=== PATIENT | male | born 1950 | race Caucasian/White ===

== ENCOUNTER 2016-12-02 09:15 | Day surgery (SDC) | payer OTHER ==
[~2016-12-02 09:15] MED LIST: Lactated Ringers 1,000 ML IV SCH
[2016-12-02] MEDS ORDERED: Midazolam 1 MG/ML 2 ML SDV ONE (10:13)
[2016-12-02] MEDS ORDERED: Propofol 200 MG/20 ML SDV ONE (10:13)
[2016-12-02] MEDS ORDERED: fentaNYL 100 MCG/2 ML SDV ONE (10:13)
--- NOTE | 2016-12-02 10:18 | PCM.PREANE ---
Preanesthetic Assessment - Anesthesia/Transfusion/Family Hx Anesthesia History: Prior Anesthesia Without Reaction Family History of Anesthesia Reaction: No Transfusion History: No Prior Transfusion(s) Intubation History: Unknown - Review of Systems General: No Symptoms Pulmonary: No Symptoms Cardiovascular: No Symptoms Gastrointestinal: No Symptoms, Other (screening) Neurological: No Symptoms Other: Reports: None - Physical Assessment O2 Sat by Pulse Oximetry: 96 Respiratory Rate: 16 Vital Signs: Last Vital Signs Temp 36.5 C 12/02/16 09:41 Pulse 50 L 12/02/16 09:41 Resp 16 12/02/16 09:41 BP 149/65 H 12/02/16 09:41 Pulse Ox 96 12/02/16 09:41 Height: 1.75 m Weight: 120.656 kg ASA Class: 3 Mental Status: Alert & Oriented x3 Airway Class: Mallampati = 2 Dentition: Reports: Normal Dentition, Broken Tooth/Teeth (lower right) Thyro-Mental Finger Breadths: 3 Mouth Opening Finger Breadths: 2 ROM/Head Extension: Limited/Partial Lungs: Clear to Auscultation, Normal Respiratory Effort Cardiovascular: Regular Rate, Regular Rhythm - Allergies Allergies/Adverse Reactions: Allergies Allergy/AdvReac Type Severity Reaction Status Date / Time No Known Allergies Allergy Verified 11/27/16 16:22 - Blood Blood Available: No - Anesthesia Plan Pre-Op Medication Ordered: None - Acknowledgements Anesthesia Type Planned: MAC Pt an Appropriate Candidate for the Planned Anesthesia: Yes Alternatives and Risks of Anesthesia Discussed w Pt/Guardian: Yes Pt/Guardian Understands and Agrees with Anesthesia Plan: Yes PreAnesthesia Questionnaire Other HEENT History: wears glasses Cardiovascular History: Reports: Hypertension Respiratory History: Reports: Sleep Apnea Other Respiratory History: uses CPAP Musculoskeletal History: Reports: Arthritis, Back Pain, Chronic Other Musculoskeletal History: hx of pain clinic procedures, arthritis in hands and back Endocrine/Metabolic History: Reports: Obesity/BMI 30+ (BMI 39.3) - Past Surgical History Cardiovascular Surgical History: Reports: Varicose Other Cardiovascular Surgeries/Procedures: hx of right leg varicose vein stripping GI Surgical History: Reports: Colonoscopy, Hernia, Abdominal, Hernia, Inguinal Other GI Surgeries/Procedures: hx of right Inguinal Hernia Repair and Umbilical Hernia Repair - SUBSTANCE USE Smoking Status *Q: Never Smoker Recreational Drug Use History: No - HOME MEDS Home Medications: Home Meds Acetaminophen [Acetaminophen Extra Strength] 500 mg PO ASDIRECTED PRN 11/27/16 [ History] Aspirin [Adult Low Dose Aspirin EC] 81 mg PO DAILY 11/27/16 [History] Diclofenac Sodium 4 gm TOP QID 11/27/16 [History] Lisinopril 20 mg PO DAILY 11/27/16 [History] Multivitamin [Men's Multi-Vitamin] 1 tab PO DAILY 11/27/16 [History] [place]-3/DHA/Epa/Fish Oil [[place] 3 500 Softgel] 1 cap PO DAILY 11/27/16 [History] Orphenadrine Citrate 100 mg PO BID PRN 11/27/16 [History] - CURRENT (IN HOUSE) MEDS Current Meds: Current Medications Lactated Ringer's (Ringers, Lactated) 1,000 mls @ 125 mls/hr IV ASDIRECTED LEONORA Last Admin: 12/02/16 09:46 Dose: 125 mls/hr
[2016-12-02] MEDS ORDERED: Glycopyrrolate 0.2 MG/ML SDV ONE (11:53)
[2016-12-02] MEDS ORDERED: Lactated Ringers 1,000 ML IV SCH (12:15)
--- NOTE | 2016-12-02 12:15 | PCM.OPNOTE ---
- General Post-Op/Procedure Note Date of Surgery/Procedure: 12/02/16 Operative Procedure(s): Colonoscopy Pre Op Diagnosis: Desire for colorectal cancer screening. Family history of colon cancer (brother). Post-Op Diagnosis: Same Anesthesia Technique: MAC (ASA III) Primary Surgeon: Lei Hollingsworth [employer] Teacher: Rhonda Goetz Condition: Good Free Text/Narrative:: Dictation [id number] CPT CODE 26098
[2016-12-02 12:51] VITALS: BP 111/59
--- NOTE | 2016-12-02 18:03 | OR ---
SURGEON: Lei Hollingsworth M.D. DATE OF PROCEDURE: 12/02/2016 PROCEDURE PERFORMED: Colonoscopy. ANESTHESIA: MAC. ASA CLASSIFICATION: III. PREOPERATIVE DIAGNOSES: 1. Desire for colorectal cancer screening. 2. Family history of colon cancer in his brother. POSTOPERATIVE DIAGNOSIS: No evidence of neoplasia. DESCRIPTION OF PROCEDURE: The patient was taken to the endoscopy room and positioned on the endoscopy table in the left lateral decubitus position. Time-out was called for appropriate identification of the patient and procedure. Monitored anesthesia care was provided. The colonoscope was inserted into the rectum and advanced with minimal difficulty to the cecum, where the colonoscope was retroflexed to visualize the ascending colon from below. The colonoscope was then straightened and slowly withdrawn. The cecum, ascending colon, hepatic flexure, transverse colon, splenic flexure, descending colon, sigmoid colon, and rectum were very well visualized. No tumors, polyps, diverticula, or angiodysplastic changes were noted. There was no evidence of inflammatory bowel disease. The colonoscope was withdrawn to the rectum and retroflexed to visualize the anal orifice from above. No tumors or polyps were seen, and there were no acute hemorrhoidal changes. The colonoscope was then straightened. The rectum was aspirated and colonoscope removed. The patient tolerated the procedure well and was taken to recovery room in a stable condition. PARVIN GAMBOA /[id number]
== END 2016-12-02 12:44 | disposition home or self-care (01) ==
LOC: MW.SDS 09:15
PROVIDERS: ATTEND Surgery
DX: Z12.11 Encounter for screening for malignant neoplasm of colon (principal); Z80.0 Family history of malignant neoplasm of digestive organs; I10 Essential (primary) hypertension; M51.36 Other intervertebral disc degeneration, lumbar region; M79.1 Myalgia; G47.30 Sleep apnea, unspecified; E66.9 Obesity, unspecified; Z79.82 Long term (current) use of aspirin; Z79.899 Other long term (current) drug therapy; Z98.890 Other specified postprocedural states; Z68.39 Body mass index [BMI] 39.0-39.9, adult; Z99.89 Dependence on other enabling machines and devices
CPT/HCPCS: 45378; J2250; J3010; J7120; 00810; J2704

== ENCOUNTER 2016-12-06 06:31 | Day surgery (SDC) | payer OTHER ==
[~2016-12-06 06:31] MED LIST changes: +ceFAZolin 2 GM in Premix Bag 1 BAG IV SCH
--- NOTE | 2016-12-06 07:07 | PCM.PREANE ---
Preanesthetic Assessment - Anesthesia/Transfusion/Family Hx Anesthesia History: Prior Anesthesia Without Reaction Family History of Anesthesia Reaction: No Transfusion History: No Prior Transfusion(s) Intubation History: Unknown - Review of Systems General: No Symptoms Pulmonary: No Symptoms Cardiovascular: No Symptoms Gastrointestinal: No Symptoms Neurological: No Symptoms Other: Reports: None - Physical Assessment O2 Sat by Pulse Oximetry: 96 Respiratory Rate: 16 Vital Signs: Last Vital Signs Temp 36 C 12/06/16 06:41 Pulse 47 L 12/06/16 06:41 Resp 16 12/06/16 06:41 BP 160/64 H 12/06/16 06:41 Pulse Ox 96 12/06/16 06:41 Height: 1.75 m Weight: 120.656 kg ASA Class: 3 Mental Status: Alert & Oriented x3 Airway Class: Mallampati = 2 Dentition: Reports: Dentures (upper and lower) Thyro-Mental Finger Breadths: 3 Mouth Opening Finger Breadths: 3 ROM/Head Extension: Full Lungs: Clear to Auscultation, Normal Respiratory Effort Cardiovascular: Regular Rate, Regular Rhythm - Allergies Allergies/Adverse Reactions: Allergies Allergy/AdvReac Type Severity Reaction Status Date / Time No Known Allergies Allergy Verified 11/27/16 16:22 - Blood Blood Available: No - Anesthesia Plan Pre-Op Medication Ordered: None - Acknowledgements Anesthesia Type Planned: General Anesthesia Pt an Appropriate Candidate for the Planned Anesthesia: Yes Alternatives and Risks of Anesthesia Discussed w Pt/Guardian: Yes Pt/Guardian Understands and Agrees with Anesthesia Plan: Yes PreAnesthesia Questionnaire Other HEENT History: wears glasses Cardiovascular History: Reports: High Cholesterol, Hypertension Respiratory History: Reports: Sleep Apnea Other Respiratory History: uses CPAP Musculoskeletal History: Reports: Arthritis, Back Pain, Chronic Other Musculoskeletal History: hx of pain clinic procedures, arthritis in hands and back Psychiatric History: Reports: Depression Endocrine/Metabolic History: Reports: Obesity/BMI 30+ (BMI 39.3) - Past Surgical History Cardiovascular Surgical History: Reports: Varicose Other Cardiovascular Surgeries/Procedures: hx of right leg varicose vein stripping GI Surgical History: Reports: Colonoscopy, Hernia, Abdominal, Hernia, Inguinal Other GI Surgeries/Procedures: hx of right Inguinal Hernia Repair and Umbilical Hernia Repair - SUBSTANCE USE Smoking Status *Q: Never Smoker Recreational Drug Use History: No - HOME MEDS Home Medications: Home Meds Acetaminophen [Acetaminophen Extra Strength] 500 mg PO ASDIRECTED PRN 11/27/16 [ History] Aspirin [Adult Low Dose Aspirin EC] 81 mg PO DAILY 11/27/16 [History] Diclofenac Sodium 4 gm TOP QID 11/27/16 [History] Lisinopril 20 mg PO DAILY 11/27/16 [History] Multivitamin [Men's Multi-Vitamin] 1 tab PO DAILY 11/27/16 [History] [place]-3/DHA/Epa/Fish Oil [[place] 3 500 Softgel] 1 cap PO DAILY 11/27/16 [History] Orphenadrine Citrate 100 mg PO BID PRN 11/27/16 [History] - CURRENT (IN HOUSE) MEDS Current Meds: Current Medications Cefazolin Sodium/Dextrose 2 gm (/ Premix) 50 mls @ 100 mls/hr IV ONETIME LEONORA Lactated Ringer's (Ringers, Lactated) 1,000 mls @ 125 mls/hr IV ASDIRECTED LEONORA Last Admin: 12/06/16 06:47 Dose: 125 mls/hr
[2016-12-06] MEDS ORDERED: Propofol 200 MG/20 ML SDV ONE (07:20)
[2016-12-06] MEDS ORDERED: Bupivacaine 0.5% 30 ML SDV ONE (07:20)
[2016-12-06] MEDS ORDERED: ceFAZolin 1 GM Vial ONE (07:20)
[2016-12-06] MEDS ORDERED: Ondansetron 4 MG/2 ML SDV ONE (07:20)
[2016-12-06] MEDS ORDERED: Rocuronium 10 MG/ML 10 ML Syringe ONE (07:20)
[2016-12-06] MEDS ORDERED: fentaNYL 100 MCG/2 ML SDV ONE ×2 (07:20→09:12)
[2016-12-06] MEDS ORDERED: Dexamethasone 4 MG/ML 5 ML MDV ONE (07:20)
[2016-12-06] MEDS ORDERED: Midazolam 1 MG/ML 2 ML SDV ONE (07:20)
[2016-12-06] MEDS ORDERED: Lidocaine 2% 5 ML SDV ONE (07:23)
[2016-12-06] MEDS ORDERED: HYDROmorphone 2 MG/ML Syringe ONE (08:06)
[2016-12-06] MEDS ORDERED: Ketorolac 30 MG/ML SDV ONE (09:02)
[2016-12-06] MEDS ORDERED: Acetaminophen/HYDROcodone 325-5 MG Tab PO PRN (09:30)
[2016-12-06] MEDS ORDERED: Morphine 10 MG/ML Syringe IVPUSH PRN (09:30)
[2016-12-06] MEDS ORDERED: Lactated Ringers 1,000 ML IV SCH (09:30)
--- NOTE | 2016-12-06 09:33 | PCM.OPNOTE ---
- General Post-Op/Procedure Note Date of Surgery/Procedure: 12/06/16 Operative Procedure(s): Repair indirect left inguinal hernia with large Bard PerFix plug and patch Pre Op Diagnosis: Reducible left inguinal hernia Post-Op Diagnosis: Same Anesthesia Technique: General ET Tube (ASA III) Primary Surgeon: Lei Hollingsworth [employer] Consultant: Rhonda Goetz Fluid Replacement, Intraop: 1,300 EBL in mLs: 10 Condition: Good Free Text/Narrative:: Dictation [id number]
--- NOTE | 2016-12-06 09:51 | OR ---
SURGEON: Lei Hollingsworth M.D. DATE OF PROCEDURE: 12/06/2016 OPERATION PERFORMED: Left inguinal hernia repair with large Bard PerFix plug and patch. CONFERENCE RESERVATIONIST: DINORAH Lemons student. ANESTHESIA: General endotracheal. ASA CLASSIFICATION: III. PREOPERATIVE DIAGNOSIS: Reducible left inguinal hernia. POSTOPERATIVE DIAGNOSIS: Reducible left inguinal hernia. ESTIMATED BLOOD LOSS: 10 mL. INTRAOPERATIVE FLUID REPLACEMENT: 1300 mL of crystalloid. DESCRIPTION OF PROCEDURE: The patient was taken to the operating room and placed on the operating table in the supine position. Time-out was called for appropriate identification of the patient and procedure. Thigh-high TEDs and sequential compression boots had been marked. The surgical site had been marked prior to the patient entering the operating room. The abdomen was prepped with DuraPrep solution. Sterile drapes were applied. The skin incision was marked out on the left inguinal crease and then infiltrated with 0.5% Marcaine solution. The skin incision was made, deepened through the subcutaneous tissue obtaining hemostasis with the use of electrocautery. Dissection was carried down to the external oblique fascia, identifying the external ring. The external oblique was then opened in the direction of its fibers. The cord was mobilized and the hernia sac was dissected away from the cord structures. These structures were then encircled with a Augustina drain. Once the hernia sac was reduced, a large Bard PerFix plug and patch was brought to the operating table and soaked in 1% Ancef solution. The plug was placed into the internal ring and secured with 0 Ethibond suture. The patch was placed over this and secured inferiorly and medially to Brady's ligament transitioning to the inguinal ligament and superiorly to the transversalis fascia. The wings were brought around the cord laterally and also secured with an 0 Ethibond suture. All sutures were tied down. The patient was given a Valsalva maneuver to 35 cm of water and the repair was solid. The wound was then irrigated with 1% Ancef solution. The cord was returned to its anatomic location. The external oblique was reapproximated with 3-0 Vicryl. Govind's fascia was closed with running 3-0 Vicryl. Skin edges were reapproximated with subcuticular 4-0 Monocryl reinforced with Steri-Strips. Sterile Tegaderm pad was placed as a dressing. Sponge, needle, and instrument counts were all correct. The patient tolerated the procedure well. Following emergence from anesthesia and extubation, he was taken to recovery room in stable condition. PARVIN GAMBOA /[id number]
[2016-12-06 12:01] VITALS: BP 139/78
--- NOTE | 2016-12-06 15:33 | PCM48HPAN ---
Post Anesthesia Note - EVALUATION WITHIN 48HRS OF ANESTHETIC Vital Signs in Normal Range: Yes Patient Participated in Evaluation: Yes Respiratory Function Stable: Yes Airway Patent: Yes Cardiovascular Function Stable: Yes Hydration Status Stable: Yes Pain Control Satisfactory: Yes Nausea and Vomiting Control Satisfactory: Yes Mental Status Recovered: Yes - COMMENTS/OBSERVATIONS Free Text/Narrative:: patient strait catheterized and 400 cc of urine obtained. Released home feeling well.
== END 2016-12-06 15:36 | disposition home or self-care (01) ==
LOC: MW.SDS 06:31
PROVIDERS: ATTEND Surgery
DX: K40.90 Unilateral inguinal hernia, without obstruction or gangrene, not specified as recurrent (principal); E78.00 Pure hypercholesterolemia, unspecified; I10 Essential (primary) hypertension; G47.30 Sleep apnea, unspecified; F32.9 Major depressive disorder, single episode, unspecified; M19.049 Primary osteoarthritis, unspecified hand; Z99.89 Dependence on other enabling machines and devices; Z79.82 Long term (current) use of aspirin; Z79.899 Other long term (current) drug therapy; Z98.890 Other specified postprocedural states
CPT/HCPCS: 49505; A9270; J0690; J1100; J1170; J1885; J2250; J2405; J3010; J7120; 00830; C1781; J2704

== ENCOUNTER 2017-08-07 11:10 | Emergency (ER) | payer OTHER ==
[2017-08-07 11:24] VITALS: BP 171/73
--- NOTE | 2017-08-07 11:38 | EDM.PDOC ---
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 He says he is not sure how he cut it but it's been bleeding and is concerned about it and there is pain at the area. The remainder of the fingers and the hand are without discomfort or injury and prior to these events he was in his usual state of good health with no systemic complaints. Patient is up-to-date on his tetanus shot. Patient says he is able to move the thumb and it is not numb but it is in fact discomforting and painful. Review of systems: As per history of present illness and below otherwise all systems reviewed and negative. Past medical history: As per history of present illness and as reviewed below otherwise noncontributory. Surgical history: As per history of present illness and as reviewed below otherwise noncontributory. Social history: No reported history of drug or alcohol abuse. Family history: As per history of present illness and as reviewed below otherwise noncontributory. Physical exam: General: Well-developed well-nourished man who is mildly overweight and nontoxic. Vital signs were noted by me HEENT: Atraumatic, normocephalic, negative for conjunctival pallor or scleral icterus, mucous membranes moist, throat clear, neck supple, nontender, trachea midline. Lungs: Clear to auscultation, breath sounds equal bilaterally, chest nontender. Heart: S1S2, regular and rhythm no overt murmurs Abdomen: Soft, nondistended, nontender. NABS. Pelvis: Deferred Genitourinary: Deferred. Rectal: Deferred. Extremities: Atraumatic with full range of motion of all extremities with the exception of the right thumb. At the distal phalanx on the dorsal side of the right thumb there is a 4 cm laceration that extends from the tip of the soft tissue through the distal aspect of the nail and then into the medial aspect of the finger. The nail is intact on the distal aspect and there is no disruption of the proximal aspect of the nail. The patient is able to flex extend and oppose at the thumb. There is oozing of blood but no gross bleeding. There is tenderness throughout this area. The laceration extends to the subcutaneous tissue. The legs are, negative for cords or calf pain. Neurovascular unremarkable. Neuro: Awake, alert, oriented. Cranial nerves II through XII unremarkable. Cerebellum unremarkable. Motor and sensory unremarkable throughout. Exam nonfocal. Diagnostics: [] Therapeutics: Wound care irrigation bacitracin and tube gauze, please see procedure note Procedure note: After the wound was cleansed by nursing and 1% lidocaine without epinephrine was infused in a digital fashion the wound was explored and no foreign bodies were appreciated. It was decided that the distal aspect of the nail would be left intact and the surrounding soft tissue would be repaired. A total number of # 4 interrupted sutures of 4-0Nylon placed without complication-1 suture at the tip of the soft tissue and 3 at the medial aspect of the laceration.. The patient tolerated the procedure well and bacitracin and tube gauze were applied by nursing. This laceration was simple in complexity and the procedure was performed by Kim Covington NP Impression: Right thumb laceration with disruption of the distal nail Definitive disposition and diagnosis as appropriate pending reevaluation and review of above. Right Thumb Pain Score (Numeric/FACES): 9 - Related Data Allergies Allergy/AdvReac Type Severity Reaction Status Date / Time No Known Allergies Allergy Verified 08/07/17 11:21 Home Meds: Home Meds Acetaminophen [Acetaminophen Extra Strength] 500 mg PO ASDIRECTED PRN 11/27/16 [ History] Aspirin [Adult Low Dose Aspirin EC] 81 mg PO DAILY 11/27/16 [History] Diclofenac Sodium 4 gm TOP QID 11/27/16 [History] Lisinopril 20 mg PO DAILY 11/27/16 [History] Multivitamin [Men's Multi-Vitamin] 1 tab PO DAILY 11/27/16 [History] [place]-3/DHA/Epa/Fish Oil [[place] 3 500 Softgel] 1 cap PO DAILY 11/27/16 [History] Orphenadrine Citrate 100 mg PO BID PRN 11/27/16 [History] Past Medical History Other HEENT History: wears glasses Cardiovascular History: Reports: High Cholesterol, Hypertension Respiratory History: Reports: Sleep Apnea Other Respiratory History: uses CPAP Musculoskeletal History: Reports: Arthritis, Back Pain, Chronic Other Musculoskeletal History: hx of pain clinic procedures, arthritis in hands and back Psychiatric History: Reports: Depression Endocrine/Metabolic History: Reports: Obesity/BMI 30+ - Past Surgical History Cardiovascular Surgical History: Reports: Varicose Other Cardiovascular Surgeries/Procedures: hx of right leg varicose vein stripping GI Surgical History: Reports: Colonoscopy, Hernia, Abdominal, Hernia, Inguinal Other GI Surgeries/Procedures: hx of right Inguinal Hernia Repair and Umbilical Hernia Repair Social & Family History - Family History Family Medical History: Noncontributory - Tobacco Use Smoking Status *Q: Never Smoker - Caffeine Use Caffeine Use: Reports: Coffee - Recreational Drug Use Recreational Drug Use: No ED ROS GENERAL - Review of Systems Review Of Systems: ROS reveals no pertinent complaints other than HPI. ED EXAM, SKIN/RASH Exam: See Below (See dictation) Course - Vital Signs Last Recorded V/S: Last Vital Signs Temp 35.8 C 08/07/17 11:21 Pulse 75 08/07/17 11:21 Resp 16 08/07/17 11:21 BP 171/73 H 08/07/17 11:21 Pulse Ox 95 08/07/17 11:21 - Orders/Labs/Meds Meds: Medications Discontinued Medications Generic Name Dose Route Start Last Admin Trade Name Tiara PRN Reason Stop Dose Admin Bacitracin 1 dose 08/07/17 11:40 Bacitracin Oint 1 Gm TOP 08/07/17 11:41 ONETIME ONE Lidocaine HCl Confirm 08/07/17 11:53 Xylocaine-Mpf 1% Administered 08/07/17 11:54 Dose 5 mls @ as directed .ROUTE .STK-MED ONE Lidocaine HCl 20 ml 08/07/17 11:40 Xylocaine 1% INJECT 08/07/17 11:41 ONETIME ONE Departure - Departure Time of Disposition: 12:14 Disposition: Home, Self-Care 01 Condition: Good Clinical Impression: Laceration of right thumb Qualifiers: Encounter type: initial encounter Damage to nail status: with damage Foreign body presence: without foreign body Qualified Code(s): S61.111A - Laceration without foreign body of right thumb with damage to nail, initial encounter - Discharge Information Referrals: PCP,None [Primary Care Provider] - Forms: ED Department Discharge Additional Instructions: The following information is given to patients seen in the emergency department who are being discharged to home. This information is to outline your options for follow-up care. We provide all patients seen in our emergency department with a follow-up referral. The need for follow-up, as well as the timing and circumstances, are variable depending upon the specifics of your emergency department visit. If you don't have a primary care physician on staff, we will provide you with a referral. We always advise you to contact your personal physician following an emergency department visit to inform them of the circumstance of the visit and for follow-up with them and/or the need for any referrals to a consulting specialist. The emergency department will also refer you to a specialist when appropriate. This referral assures that you have the opportunity for followup care with a specialist. All of these measure are taken in an effort to provide you with optimal care, which includes your followup. Under all circumstances we always encourage you to contact your private physician who remains a resource for coordinating your care. When calling for followup care, please make the office aware that this follow-up is from your recent emergency room visit. If for any reason you are refused follow-up, please contact the [facility] emergency department at and ask to speak to the emergency department charge nurse. [facility] Primary care- Internal [place] [address] Please keep tube gauze was placed in the ED on for the next 24 hours and then remove and cleanse with mild soap and water pat dry. Please cleanse the area at least twice a day and apply bacitracin and Neosporin for the first 2-3 days and then stop the ointment. Sutures should be removed in 7 days here in the emergency department or with your provider in the clinic. Return to ER sooner as needed and as discussed
[2017-08-07] MEDS ORDERED: Lidocaine 1% 20 ML MDV INJECT ONE (11:40)
[2017-08-07] MEDS ORDERED: Bacitracin Oint 1 GM U/D Packet TOP ONE (11:40)
== END 2017-08-07 12:50 | disposition home or self-care (01) ==
LOC: MW.ED 11:10
DX: S61.011A Laceration without foreign body of right thumb without damage to nail, initial encounter (principal); I10 Essential (primary) hypertension; E66.9 Obesity, unspecified; Z79.82 Long term (current) use of aspirin; Z79.899 Other long term (current) drug therapy; W45.8XXA Other foreign body or object entering through skin, initial encounter; Y99.0 Civilian activity done for income or pay; Y92.219 Unspecified school as the place of occurrence of the external cause
CPT/HCPCS: 99282

== ENCOUNTER 2020-09-23 14:17 | Emergency (ER) | payer MEDICARE, OTHER ==
--- NOTE | 2020-09-23 14:30 | EDM.PDOC ---
ED HPI GENERAL MEDICAL PROBLEM - General Stated Complaint: FELL OFF SHED ROOF Time Seen by Provider: 09/23/20 14:28 - History of Present Illness INITIAL COMMENTS - FREE TEXT/NARRATIVE: History of present illness: [] Patient was working out in the heat on a roof and he missed this edge and slipped. He tried to grab the ladder and ended up falling from an 8 foot height. He has pain in the right shoulder and arm. He has no other injury. He denies neck pain. He denies syncope or any medical cause for his fall. He has a history of sleep apnea. His last p.o. intake was a bowl of cereal at 12:30 PM. Review of systems: As per history of present illness and below otherwise all systems reviewed and negative. Past medical history: As per history of present illness and as reviewed below otherwise noncontributory. Surgical history: As per history of present illness and as reviewed below otherwise noncontributory. Social history: No reported history of drug or alcohol abuse. Family history: As per history of present illness and as reviewed below otherwise noncontributory. Physical exam: Constitutional - well developed, well-nourished and in no acute distress HEENT - normocephalic, no evidence of trauma - external nose and mouth normal - no mass in neck and no JVD - mucosae moist EYES - full EOM, PERRL, no icterus - no evidence of inflammation, injection, or drainage Respiratory - no respiratory distress, equal bilateral expansion, lungs clear to auscultation and no abnormal lung sounds Cardiovascular -circulation in the distal digits of the right upper extremity and radial pulse intact. Regular Rhythm with S1 and S2 appreciated and no murmur, gallop or rub. GI - abdomen soft without distension or organomegaly - normal bowel sounds - no guard or rebound Musculoskeletal tenderness in the right upper arm. No gross deformity of long bones or joints - no tenderness, swelling or edema Neurologic -median ulnar and radial sensory motor exam intact. Alert and oriented times four - CN II-XII grossly intact - motor sensory and coordination symmetrically normal Psychiatric - appropriate mood and affect with normal thought content Hematologic - No petechiae or purpura - mucosa appropriate color and sclera not pale - normal nail bed color and refill Integument - no rash or evidence of trauma - normal turgor Diagnostics: [] Therapeutics: [] Impression: [] Plan: [] Definitive disposition and diagnosis as appropriate pending reevaluation and review of above. Right Arm Pain Score (Numeric/FACES): 10 - Related Data Allergies Allergy/AdvReac Type Severity Reaction Status Date / Time No Known Allergies Allergy Verified 09/23/20 14:31 Home Meds: Home Meds Acetaminophen [Acetaminophen Extra Strength] 500 mg PO ASDIRECTED PRN 11/27/16 [History] Aspirin [Adult Low Dose Aspirin EC] 81 mg PO DAILY 11/27/16 [History] Lisinopril 20 mg PO DAILY 11/27/16 [History] Multivitamin [Men's Multi-Vitamin] 1 tab PO DAILY 11/27/16 [History] [place]-3/DHA/Epa/Fish Oil [[place] 3 500 Softgel] 1 cap PO DAILY 11/27/16 [History] Acetaminophen/oxyCODONE [Percocet 325-5 MG] 1 - 2 each PO Q4H PRN #12 tab 09/23/20 [Rx] Furosemide [Lasix] 40 mg PO DAILY 09/23/20 [History] atorvaSTATin [Lipitor] 20 mg PO DAILY 09/23/20 [History] Past Medical History Other HEENT History: wears glasses Cardiovascular History: Reports: High Cholesterol, Hypertension Respiratory History: Reports: Sleep Apnea Other Respiratory History: uses CPAP Musculoskeletal History: Reports: Arthritis, Back Pain, Chronic Other Musculoskeletal History: hx of pain clinic procedures, arthritis in hands and back Psychiatric History: Reports: Depression Endocrine/Metabolic History: Reports: Obesity/BMI 30+ - Past Surgical History Cardiovascular Surgical History: Reports: Varicose Other Cardiovascular Surgeries/Procedures: hx of right leg varicose vein stripping GI Surgical History: Reports: Colonoscopy, Hernia, Abdominal, Hernia, Inguinal Other GI Surgeries/Procedures: hx of right Inguinal Hernia Repair and Umbilical Hernia Repair Social & Family History - Family History Family Medical History: No Pertinent Family History - Caffeine Use Caffeine Use: Reports: Coffee ED ROS GENERAL - Review of Systems Review Of Systems: Comprehensive ROS is negative, except as noted in HPI. ED EXAM, GENERAL - Physical Exam Exam: See Below Free Text/Narrative:: My physical exam as in the HPI ED GENERAL MEDICAL PROCEDURES - Joint Reduction Right Shoulder Sedation: Other (Partial hynosis/distraction after narcotic for pain and anxiolytic medicine with an intramuscular muscle relaxer) Pre-procedure NV status: Normal Post-procedure NV status: Normal Technique: Other (Arm abducted and shoulder rotated into place with scapular manipulation) Number of Attempts: 2 Post-Reduction Imaging: Completely Reduced Course - Vital Signs Text/Narrative:: 1617 p.m. after an attempted reduction in the position looks better but I am not sure on one view whether there is complete relocation or subluxation or partial dislocation persisting. Waiting for radiology report. Patient shoulder was rotated into place and the patient tolerated the procedure well. Neurovascular structures intact after and and also after sling reapplied. There were no complications Last Recorded V/S: Last Vital Signs Temp 36.6 C 09/23/20 14:37 Pulse 69 09/23/20 15:37 Resp 16 09/23/20 15:37 BP 165/73 H 09/23/20 15:37 Pulse Ox 94 L 09/23/20 15:37 - Orders/Labs/Meds Meds: Medications Discontinued Medications Generic Name Dose Route Start Last Admin Trade Name Freq PRN Reason Stop Dose Admin Hydromorphone HCl 1 mg 09/23/20 15:15 09/23/20 15:34 Hydromorphone 1 Mg/Ml Syringe IVPUSH 09/23/20 15:16 1 mg ONETIME ONE Administration Lorazepam 1 mg 09/23/20 15:15 09/23/20 15:34 Lorazepam 2 Mg/Ml Sdv IVPUSH 09/23/20 15:16 1 mg ONETIME ONE Administration Orphenadrine Citrate 60 mg 09/23/20 15:18 09/23/20 15:33 Orphenadrine 60 Mg/2 Ml Inj IM 09/23/20 15:19 60 mg ONETIME ONE Administration Departure - Departure Time of Disposition: 17:20 Disposition: Home, Self-Care 01 Condition: Good Clinical Impression: Anterior dislocation of right shoulder - Discharge Information Instructions: Shoulder Dislocation, [id number] Referrals: Javier Mata MD [Primary Care Provider] - Additional Instructions: [facility] - Orthopedic Clinic [address], [address] [place] [address] The following information is given to patients seen in the emergency department who are being discharged to home. This information is to outline your options for follow-up care. We provide all patients seen in our emergency department with a follow-up referral. The need for follow-up, as well as the timing and circumstances, are variable depending upon the specifics of your emergency department visit. If you don't have a primary care physician on staff, we will provide you with a referral. We always advise you to contact your personal physician following an emergency department visit to inform them of the circumstance of the visit and for follow-up with them and/or the need for any referrals to a consulting specialist. The emergency department will also refer you to a specialist when appropriate. This referral assures that you have the opportunity for follow-up care with a specialist. All of these measure are taken in an effort to provide you with optimal care, which includes your follow-up. Under all circumstances we always encourage you to contact your private physician who remains a resource for coordinating your care. When calling for follow-up care, please make the office aware that this follow-up is from your recent emergency room visit. If for any reason you are refused follow-up, please contact the [facility] Emergency Department at and asked to speak to the emergency department charge nurse. Sepsis Event Note (ED) - Focused Exam Vital Signs: Vital Signs Temp Pulse Resp BP Pulse Ox 09/23/20 15:37 69 16 165/73 H 94 L 09/23/20 14:37 36.6 C 64 18 145/58 H 96
[2020-09-23] MEDS ORDERED: LORazepam 2 MG/ML SDV IVPUSH ONE (15:15)
[2020-09-23] MEDS ORDERED: HYDROmorphone 1 MG/ML Syringe IVPUSH ONE (15:15)
[2020-09-23] MEDS ORDERED: Orphenadrine 60 MG/2 ML Inj IM ONE (15:18)
--- NOTE | 2020-09-23 15:32 | CR ---
INDICATION: Right arm pain after fall. COMPARISON: None. TECHNIQUE: Right humerus, 2 views. FINDINGS: Anterior dislocation of the humeral head relative to the glenoid fossa. No acute fracture. AC joint degenerative changes. IMPRESSION: Anterior shoulder dislocation. Dictated by Darren Joy MD @ 09/23/2020 3:31:[address] Darren Joy @ Sep 23 2020 3:31PM
--- NOTE | 2020-09-23 15:34 | CR ---
INDICATION: Right arm pain after fall. COMPARISON: None. TECHNIQUE: Right shoulder 2 views. IMPRESSION: Anterior shoulder dislocation. AC joint degenerative arthrosis. No acute fracture identified on these images. Dictated by Darren Joy MD @ 09/23/2020 3:32:[address] Darren Joy @ Sep 23 2020 3:32PM
--- NOTE | 2020-09-23 16:45 | CR ---
Indication: Attempted reduction Technique: Two views the right shoulder Comparison: X-ray 09/23/2020 Findings: Normal articulation of the glenohumeral joint. AC degenerative change. No acute fractures Dictated by Cyn Olvera MD @ 09/23/2020 4:44:[address] Cyn Olvera @ Sep 23 2020 4:44PM
[2020-09-23 18:11] VITALS: BP 162/73; PULSE 67
== END 2020-09-23 18:31 | disposition home or self-care (01) ==
LOC: MW.ED 14:17
DX: S43.014A Anterior dislocation of right humerus, initial encounter (principal); I10 Essential (primary) hypertension; E78.00 Pure hypercholesterolemia, unspecified; M19.90 Unspecified osteoarthritis, unspecified site; E66.9 Obesity, unspecified; Z68.41 Body mass index [BMI] 40.0-44.9, adult; Z79.82 Long term (current) use of aspirin; Z79.899 Other long term (current) drug therapy; W11.XXXA Fall on and from ladder, initial encounter
CPT/HCPCS: 23650; 73030; 73060; 96372; 96374; 96375; 99284; J1170; J2060; J2360; 99283

== ENCOUNTER 2020-09-25 15:59 | Emergency (ER) | payer MEDICARE ==
--- NOTE | 2020-09-25 16:35 | EDM.PDOC ---
ED HPI GENERAL MEDICAL PROBLEM - General Chief Complaint: Upper Extremity Injury/Pain Stated Complaint: WANTS HIS ARM LOOKED AT Time Seen by Provider: 09/25/20 16:05 - History of Present Illness INITIAL COMMENTS - FREE TEXT/NARRATIVE: History of present illness: [] The patient complains of persistent pain in the right shoulder. Is worse with range of motion he has limitation in range of motion as well. He had a little bleeding from an abrasion on his right elbow as well. Patient fell off a roof 2 days ago and I saw him and we reduced his shoulder. His last p.o. was 1230 today and he had solid food. Review of systems: As per history of present illness and below otherwise all systems reviewed and negative. Past medical history: As per history of present illness and as reviewed below otherwise noncontributory. Surgical history: As per history of present illness and as reviewed below otherwise noncontributory. Social history: No reported history of drug or alcohol abuse. Family history: As per history of present illness and as reviewed below otherwise noncontributory. Physical exam: Constitutional - well developed, well-nourished and in no acute distress HEENT - normocephalic, no evidence of trauma - external nose and mouth normal - no mass in neck and no JVD - mucosae moist EYES - full EOM, PERRL, no icterus - no evidence of inflammation, injection, or drainage Respiratory - no respiratory distress, equal bilateral expansion Musculoskeletal tenderness and limited range of motion right shoulder otherwise no gross deformity of long bones or joints - no tenderness, swelling or edema Neurologic - Alert and oriented times four - CN II-XII grossly intact - motor sensory and coordination symmetrically normal Psychiatric - appropriate mood and affect with normal thought content Hematologic - No petechiae or purpura - mucosa appropriate color and sclera not pale - normal nail bed color and refill Integument - no rash or evidence of trauma - normal turgor Diagnostics: [] Therapeutics: [] Impression: [] Plan: [] Definitive disposition and diagnosis as appropriate pending reevaluation and review of above. - Related Data Allergies Allergy/AdvReac Type Severity Reaction Status Date / Time No Known Allergies Allergy Verified 09/23/20 14:31 Home Meds: Home Meds Acetaminophen [Acetaminophen Extra Strength] 500 mg PO ASDIRECTED PRN 11/27/16 [History] Aspirin [Adult Low Dose Aspirin EC] 81 mg PO DAILY 11/27/16 [History] Lisinopril 20 mg PO DAILY 11/27/16 [History] Multivitamin [Men's Multi-Vitamin] 1 tab PO DAILY 11/27/16 [History] [place]-3/DHA/Epa/Fish Oil [[place] 3 500 Softgel] 1 cap PO DAILY 11/27/16 [History] Acetaminophen/oxyCODONE [Percocet 325-5 MG] 1 - 2 each PO Q4H PRN #12 tab 09/23/20 [Rx] Furosemide [Lasix] 40 mg PO DAILY 09/23/20 [History] atorvaSTATin [Lipitor] 20 mg PO DAILY 09/23/20 [History] predniSONE [Prednisone] 60 mg PO DAILY #21 tablet 09/25/20 [Rx] Past Medical History Other HEENT History: wears glasses Cardiovascular History: Reports: High Cholesterol, Hypertension Respiratory History: Reports: Sleep Apnea Other Respiratory History: uses CPAP Musculoskeletal History: Reports: Arthritis, Back Pain, Chronic Other Musculoskeletal History: hx of pain clinic procedures, arthritis in hands and back Psychiatric History: Reports: Depression Endocrine/Metabolic History: Reports: Obesity/BMI 30+ - Infectious Disease History Infectious Disease History: Reports: None - Past Surgical History Cardiovascular Surgical History: Reports: Varicose Other Cardiovascular Surgeries/Procedures: hx of right leg varicose vein stripping GI Surgical History: Reports: Colonoscopy, Hernia, Abdominal, Hernia, Inguinal Other GI Surgeries/Procedures: hx of right Inguinal Hernia Repair and Umbilical Hernia Repair Social & Family History - Family History Family Medical History: No Pertinent Family History - Caffeine Use Caffeine Use: Reports: None Review of Systems - Review of Systems Review Of Systems: Comprehensive ROS is negative, except as noted in HPI. ED EXAM, GENERAL - Physical Exam Exam: See Below Free Text/Narrative:: My physical exam is in the HPI Course - Vital Signs Text/Narrative:: X-ray revealed no dislocation and no fracture. Patient is tender anteriorly. Scapula is nontender. Impression joint pain after relocation of shoulder dislocation. - Orders/Labs/Meds Orders: Active Orders 24 hr Category Date Time Status Shoulder Comp Rt [CR] Stat Exams 09/25/20 16:33 Taken Meds: Medications Discontinued Medications Generic Name Dose Route Start Last Admin Trade Name Freq PRN Reason Stop Dose Admin Prednisone 60 mg 09/25/20 17:05 Prednisone 20 Mg Tab PO 09/25/20 17:06 ONETIME ONE Departure - Departure Time of Disposition: 17:07 Disposition: Home, Self-Care 01 Condition: Good Clinical Impression: Right shoulder pain - Discharge Information Prescriptions: predniSONE [Prednisone] 60 mg PO DAILY #21 tablet Instructions: Shoulder Pain Referrals: Javier Mata MD [Primary Care Provider] - Forms: ED Department Discharge Additional Instructions: [facility] - Orthopedic Clinic [address], [address] [place] [address] He should see the orthopedist in the clinic, do range of motion exercises of his shoulder, use the strongest anti-inflammatory which we have prescribed, and return immediately if you have numbness weakness or pale color in your fingers. The following information is given to patients seen in the emergency department who are being discharged to home. This information is to outline your options for follow-up care. We provide all patients seen in our emergency department with a follow-up referral. The need for follow-up, as well as the timing and circumstances, are variable depending upon the specifics of your emergency department visit. If you don't have a primary care physician on staff, we will provide you with a referral. We always advise you to contact your personal physician following an emergency department visit to inform them of the circumstance of the visit and for follow-up with them and/or the need for any referrals to a consulting specialist. The emergency department will also refer you to a specialist when appropriate. This referral assures that you have the opportunity for follow-up care with a specialist. All of these measure are taken in an effort to provide you with optimal care, which includes your follow-up. Under all circumstances we always encourage you to contact your private physician who remains a resource for coordinating your care. When calling for follow-up care, please make the office aware that this follow-up is from your recent emergency room visit. If for any reason you are refused follow-up, please contact the [facility] Emergency Department at and asked to speak to the emergency department charge nurse. - My Orders Last 24 Hours: My Active Orders 09/25/20 16:33 Shoulder Comp Rt [CR] Stat - Assessment/Plan Last 24 Hours: My Active Orders 09/25/20 16:33 Shoulder Comp Rt [CR] Stat
[2020-09-25] MEDS ORDERED: predniSONE 20 MG Tab PO ONE (17:05)
[2020-09-25 17:54] VITALS: BP 132/71; PULSE 88
--- NOTE | 2020-09-25 18:18 | CR ---
Indication: Pain after dislocation Comparison: Two views right shoulder September 23, 2020 Technique: AP internal, and scapular-Y views right shoulder were obtained Findings: There is no displaced fracture or dislocation. There is moderate to severe degenerative change of the acromioclavicular and glenohumeral joints. The soft tissues are unremarkable. Impression: Moderate to severe degenerative changes of the acromioclavicular and glenohumeral joint without acute osseous abnormality. Dictated by Joon Deluna MD @ 09/25/2020 6:16:[address] Joon Deluna @ Sep 25 2020 6:16PM
== END 2020-09-25 17:24 | disposition home or self-care (01) ==
LOC: MW.ED 15:59
DX: M25.511 Pain in right shoulder (principal); E78.00 Pure hypercholesterolemia, unspecified; I10 Essential (primary) hypertension; E66.9 Obesity, unspecified; Z68.30 Body mass index [BMI] 30.0-30.9, adult; Z79.82 Long term (current) use of aspirin; Z79.899 Other long term (current) drug therapy
CPT/HCPCS: 73030; 99283; A9270; 99282

== ENCOUNTER 2020-10-11 23:57 | Emergency (ER) | payer MEDICARE, OTHER ==
[2020-10-12] MEDS ORDERED: Ondansetron 4 MG/2 ML SDV IVPUSH ONE (00:45)
[2020-10-12] MEDS ORDERED: Morphine 4 MG/ML Syringe IVPUSH ONE (00:45)
[2020-10-12] MEDS ORDERED: Morphine 4 MG/ML Syringe ONE (00:46)
[2020-10-12] MEDS ORDERED: Ondansetron 4 MG/2 ML SDV ONE (00:47)
--- NOTE | 2020-10-12 01:02 | CR ---
Indication: Possible dislocation Technique: Right shoulder 09/25/2020 views Comparison: None Findings: Anterior dislocation of the right humerus relative to the glenohumeral joint. No definite evidence of fracture. Right upper ribs unremarkable. Dictated by Valentin Wallace MD @ 10/12/2020 1:01:[address] Valentin Wallace @ Oct 12 2020 1:01AM
[2020-10-12] MEDS ORDERED: fentaNYL 50 MCG/ML SDV IVPUSH ONE (01:23)
[2020-10-12] MEDS ORDERED: fentaNYL 50 MCG/ML SDV ONE (01:23)
[2020-10-12] MEDS ORDERED: Lactated Ringers 1,000 ML IV STA (03:30)
--- NOTE | 2020-10-12 03:36 | PCM.PREANE ---
Preanesthetic Assessment - Anesthesia/Transfusion/Family Hx Anesthesia History: Prior Anesthesia Without Reaction Family History of Anesthesia Reaction: No Transfusion History: No Prior Transfusion(s) Intubation History: Unknown - Review of Systems General: No Symptoms Pulmonary: No Symptoms, Other (Uses CPAP machine at home) Cardiovascular: No Symptoms, Other (HTN) Gastrointestinal: No Symptoms Neurological: No Symptoms Other: Reports: None - Physical Assessment NPO Status Date: 10/11/20 NPO Status Time: 19:00 Vital Signs: Last Vital Signs Temp Pulse 50 L 10/12/20 02:05 Resp 18 10/12/20 02:05 BP 155/51 H 10/12/20 02:05 Pulse Ox 94 L 10/12/20 02:05 Height: 5 ft 6 in Weight: 122.47 kg ASA Class: 3E Mental Status: Alert & Oriented x3 Airway Class: Mallampati = 3 Dentition: Reports: Normal Dentition, Missing Tooth/Teeth (bottom teeth present) Thyro-Mental Finger Breadths: 3 Mouth Opening Finger Breadths: 3 ROM/Head Extension: Full Lungs: Clear to Auscultation, Normal Respiratory Effort Cardiovascular: Regular Rate, Regular Rhythm - Allergies Allergies/Adverse Reactions: Allergies Allergy/AdvReac Type Severity Reaction Status Date / Time No Known Allergies Allergy Verified 10/11/20 23:59 - Acknowledgements Anesthesia Type Planned: MAC (Sedation in ER for dislocated right shoulder) Pt an Appropriate Candidate for the Planned Anesthesia: Yes Alternatives and Risks of Anesthesia Discussed w Pt/Guardian: Yes Pt/Guardian Understands and Agrees with Anesthesia Plan: Yes Additional Comments: present and signed consent for patient due to previous pain medication. PreAnesthesia Questionnaire Other HEENT History: wears glasses Cardiovascular History: Reports: High Cholesterol, Hypertension Respiratory History: Reports: Sleep Apnea Other Respiratory History: uses CPAP Musculoskeletal History: Reports: Arthritis, Back Pain, Chronic Other Musculoskeletal History: hx of pain clinic procedures, arthritis in hands and back Psychiatric History: Reports: Depression Endocrine/Metabolic History: Reports: Obesity/BMI 30+ - Infectious Disease History Infectious Disease History: Reports: None - Past Surgical History Cardiovascular Surgical History: Reports: Varicose Other Cardiovascular Surgeries/Procedures: hx of right leg varicose vein stripping GI Surgical History: Reports: Colonoscopy, Hernia, Abdominal, Hernia, Inguinal Other GI Surgeries/Procedures: hx of right Inguinal Hernia Repair and Umbilical Hernia Repair - SUBSTANCE USE Tobacco Use Status *Q: Never Tobacco User Recreational Drug Use History: No - HOME MEDS Home Medications: Home Meds Acetaminophen [Acetaminophen Extra Strength] 500 mg PO ASDIRECTED PRN 11/27/16 [History] Aspirin [Adult Low Dose Aspirin EC] 81 mg PO DAILY 11/27/16 [History] Lisinopril 20 mg PO DAILY 11/27/16 [History] Multivitamin [Men's Multi-Vitamin] 1 tab PO DAILY 11/27/16 [History] [place]-3/DHA/Epa/Fish Oil [[place] 3 500 Softgel] 1 cap PO DAILY 11/27/16 [History] Acetaminophen/oxyCODONE [Percocet 325-5 MG] 1 - 2 each PO Q4H PRN #12 tab 09/23/20 [Rx] Furosemide [Lasix] 40 mg PO DAILY 09/23/20 [History] atorvaSTATin [Lipitor] 20 mg PO DAILY 09/23/20 [History] - CURRENT (IN HOUSE) MEDS Current Meds: Current Medications Lactated Ringer's (Ringers, Lactated) 1,000 mls @ 999 mls/hr IV NOW STA Stop: 10/12/20 04:30 Discontinued Medications Fentanyl (Fentanyl 50 Mcg/Ml Sdv) 50 mcg IVPUSH ONETIME ONE Stop: 10/12/20 01:24 Last Admin: 10/12/20 01:27 Dose: 50 mcg Documented by: Fentanyl (Fentanyl 50 Mcg/Ml Sdv) Confirm Administered Dose 50 mcg .ROUTE .STK- MED ONE Stop: 10/12/20 01:24 Last Admin: 10/12/20 02:21 Dose: Not Given Documented by: Morphine Sulfate (Morphine 4 Mg/Ml Syringe) 4 mg IVPUSH ONETIME ONE Stop: 10/12/20 00:46 Last Admin: 10/12/20 00:52 Dose: 4 mg Documented by: Morphine Sulfate (Morphine 4 Mg/Ml Syringe) Confirm Administered Dose 4 mg .ROUTE .STK-MED ONE Stop: 10/12/20 00:47 Last Admin: 10/12/20 00:52 Dose: Not Given Documented by: Ondansetron HCl (Ondansetron 4 Mg/2 Ml Sdv) 4 mg IVPUSH ONETIME ONE Stop: 10/12/20 00:46 Last Admin: 10/12/20 00:51 Dose: 4 mg Documented by: Ondansetron HCl (Ondansetron 4 Mg/2 Ml Sdv) Confirm Administered Dose 4 mg .ROUTE .[facility] ONE Stop: 10/12/20 00:48 Last Admin: 10/12/20 00:52 Dose: Not Given Documented by:
[2020-10-12] MEDS ORDERED: Propofol 200 MG/20 ML SDV ONE (03:39)
--- NOTE | 2020-10-12 04:13 | EDM.PDOC ---
ED HPI GENERAL MEDICAL PROBLEM - General Chief Complaint: Upper Extremity Injury/Pain Stated Complaint: SHOULDER PAIN Time Seen by Provider: 10/12/20 00:03 - History of Present Illness INITIAL COMMENTS - FREE TEXT/NARRATIVE: CHIEF COMPLAINT(S): Right shoulder dislocation HISTORY OF PRESENT ILLNESS: This is a 70-year-old man with a past medical history of right shoulder dislocation who comes to the emergency department with a chief complaint of right shoulder dislocation. The patient states that he was crawling into bed when he felt his right shoulder dislocate. He states his he is experiencing 10 out of 10 pain in his right shoulder. He denies any radiation of this pain. He describes the pain as achy. States the pain is exacerbated when he moves it. He denies any numbness, tingling, weakness. He states that he has not yet taken any medication and came to the emergency department for reevaluation. There are no relieving factors. REVIEW OF SYSTEMS: Skin:Denies a rash MSK: Positive for right shoulder pain and dislocation Neurological: Denies numbness, tingling, weakness Psychiatric: Denies depression PAST MEDICAL HISTORY: As per history of present illness and as reviewed below otherwise noncontributory. SURGICAL HISTORY: As per history of present illness and as reviewed below otherwise noncontributory. SOCIAL HISTORY: As per history of present illness and as reviewed below otherwise noncontributory. FAMILY HISTORY: As per history of present illness and as reviewed below otherwise noncontributory. EXAMINATION OF ORGAN SYSTEMS/BODY AREAS: Constitutional: Blood pressure is 183/87, heart rate 55, respiratory rate 20 with an oxygen saturation 98% on room air. General: Well-appearing man who is in no acute distress Psychiatric: Appropriate mood and affect. Eyes: No scleral icterus or conjunctival erythema ENMT: Moist mucous membranes. No pharyngeal erythema Cardiovascular: Regular, rate, and rhythm. No gallops, murmurs, or rubs. Bilateral upper extremity pulses symmetric and intact. Respiratory: Lungs clear to auscultation bilaterally. No wheezes, rales, or rhonchi. Musculoskeletal: Decreased intramotion of the right shoulder secondary to pain. There is a inferior displaced humerus which is visible through the skin on the right side. The patient is holding his arm in a flexed position. Distal fingertips are of full range of motion. Skin: No lesions or abrasions. Neurological: Alert, GCS 15 distal sensation is intact MEDICAL DECISION MAKING AND COURSE IN THE ED WITH INTERPRETATION/REVIEW OF DIAGNOSTIC STUDIES: This is a 70-year-old man with a past medical history of right shoulder dislocation who comes to the emergency department with likely right shoulder dislocation. We will provide the patient with morphine for pain and obtain a right shoulder x-ray. I do not believe any work-up otherwise is indicated. The radiological images were viewed by myself along with reading the report from the radiologist. Right shoulder x-ray reveals a anterior inferior dislocation of the right humerus. After imaging the patient did report some nausea after morphine we will provide the patient with 4 mg of Zofran. At this time I did discuss that we would like to perform a reduction. He was amenable to this plan. We contacted anesthesia who was on their way. Please refer to their note for their procedural sedation. Right shoulder reduction Procedure Note Performed by: Myself with RN Consent: Verbal consent obtained. Risks and benefits: risks, benefits and alternatives were discussed Consent given by: Patient Patient understanding: Patient states understanding of the procedure being performed Patient consent: Patient understanding of the procedure matches consent given Patient identity confirmed: verbally with patient and arm band Time out: Immediately prior to procedure a "time out" was called to verify the correct patient, procedure, equipment, support representative and site/side marked as required. Location details: Right shoulder Reduction Procedure: axial pull and closed manipulation of right shoulder dislocation Results: Post reduction alignement improved Complication: Tolerated well without complication. 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 Tendons intact. Post-reduction Examination: Capillary refill less than 2 seconds, distal sensation intact full range of motion of all his fingers on his right hand Post Reduction Imaging: Right shoulder x-ray reveals reduction of glenohumeral joint dislocation. There is an approximately 1.5 cm long displaced osseous Bankart lesion. I did discuss the postprocedural imaging with the patient. He was instructed to follow-up with his orthopedic surgeon and 3 to 5 days for reevaluation given the recurrent shoulder dislocation. He was amenable discharge at this time and had no further questions. He was given strict return precautions DISPOSITION: The patient was discharged home in stable condition. The patient will follow up with orthopedics in 3 to 5 days CONDITION: Fair PROCEDURES: Right shoulder dislocation reduction FINAL IMPRESSION(S)/DIAGNOSES: 1. Acute right shoulder dislocation reduction 2. Acute right Bankart lesion Efrem Sanchez M.D. right shoulder Pain Score (Numeric/FACES): 10 - Related Data Allergies Allergy/AdvReac Type Severity Reaction Status Date / Time No Known Allergies Allergy Verified 10/11/20 23:59 Home Meds: Home Meds Acetaminophen [Acetaminophen Extra Strength] 500 mg PO ASDIRECTED PRN 11/27/16 [History] Aspirin [Adult Low Dose Aspirin EC] 81 mg PO DAILY 11/27/16 [History] Lisinopril 20 mg PO DAILY 11/27/16 [History] Multivitamin [Men's Multi-Vitamin] 1 tab PO DAILY 11/27/16 [History] Afton-3/DHA/Epa/Fish Oil [A[place]on 3 500 Softgel] 1 cap PO DAILY 11/27/16 [History] Acetaminophen/oxyCODONE [Percocet 325-5 MG] 1 - 2 each PO Q4H PRN #12 tab 09/23/20 [Rx] Furosemide [Lasix] 40 mg PO DAILY 09/23/20 [History] atorvaSTATin [Lipitor] 20 mg PO DAILY 09/23/20 [History] Past Medical History Other HEENT History: wears glasses Cardiovascular History: Reports: High Cholesterol, Hypertension Respiratory History: Reports: Sleep Apnea Other Respiratory History: uses CPAP Musculoskeletal History: Reports: Arthritis, Back Pain, Chronic Other Musculoskeletal History: hx of pain clinic procedures, arthritis in hands and back Psychiatric History: Reports: Depression Endocrine/Metabolic History: Reports: Obesity/BMI 30+ - Infectious Disease History Infectious Disease History: Reports: None - Past Surgical History Cardiovascular Surgical History: Reports: Varicose Other Cardiovascular Surgeries/Procedures: hx of right leg varicose vein stripping GI Surgical History: Reports: Colonoscopy, Hernia, Abdominal, Hernia, Inguinal Other GI Surgeries/Procedures: hx of right Inguinal Hernia Repair and Umbilical Hernia Repair Social & Family History - Family History Family Medical History: No Pertinent Family History - Tobacco Use Tobacco Use Status *Q: Never Tobacco User - Caffeine Use Caffeine Use: Reports: Coffee - Recreational Drug Use Recreational Drug Use: No ED ROS GENERAL - Review of Systems Review Of Systems: See Below ED EXAM, GENERAL - Physical Exam Exam: See Below Course - Vital Signs Last Recorded V/S: Last Vital Signs Temp Pulse 56 L 10/12/20 05:00 Resp 18 10/12/20 05:00 BP 145/60 H 10/12/20 05:00 Pulse Ox 95 10/12/20 05:00 - Orders/Labs/Meds Meds: Medications Discontinued Medications Generic Name Dose Route Start Last Admin Trade Name Tiara PRN Reason Stop Dose Admin Fentanyl 50 mcg 10/12/20 01:23 10/12/20 01:27 Fentanyl 50 Mcg/Ml Sdv IVPUSH 10/12/20 01:24 50 mcg ONETIME ONE Administration Fentanyl Confirm 10/12/20 01:23 10/12/20 02:21 Fentanyl 50 Mcg/Ml Sdv Administered 10/12/20 01:24 Not Given Dose 50 mcg .ROUTE .STK-MED ONE Lactated Ringer's 1,000 mls @ 999 mls/hr 10/12/20 03:30 10/12/20 03:32 Ringers, Lactated IV 10/12/20 04:30 999 mls/hr NOW STA Administration Morphine Sulfate 4 mg 10/12/20 00:45 10/12/20 00:52 Morphine 4 Mg/Ml Syringe IVPUSH 10/12/20 00:46 4 mg ONETIME ONE Administration Morphine Sulfate Confirm 10/12/20 00:46 10/12/20 00:52 Morphine 4 Mg/Ml Syringe Administered 10/12/20 00:47 Not Given Dose 4 mg .ROUTE .STK-MED ONE Ondansetron HCl 4 mg 10/12/20 00:45 10/12/20 00:51 Ondansetron 4 Mg/2 Ml Sdv IVPUSH 10/12/20 00:46 4 mg ONETIME ONE Administration Ondansetron HCl Confirm 10/12/20 00:47 10/12/20 00:52 Ondansetron 4 Mg/2 Ml Sdv Administered 10/12/20 00:48 Not Given Dose 4 mg .ROUTE .STK-MED ONE Propofol Confirm 10/12/20 03:39 Propofol 200 Mg/20 Ml Sdv Administered 10/12/20 03:40 Dose 200 mg .ROUTE .STK-MED ONE Departure - Departure Time of Disposition: 04:11 Disposition: Home, Self-Care 01 Condition: Fair Clinical Impression: Recurrent dislocation, right shoulder, Bankart lesion of right shoulder - Discharge Information *PRESCRIPTION DRUG MONITORING PROGRAM REVIEWED*: No *COPY OF PRESCRIPTION DRUG MONITORING REPORT IN PATIENT ERVIN: No Instructions: How To Use a Sling, [id number], Shoulder Dislocation, [id number] Referrals: Javier Mata MD [Primary Care Provider] - Forms: ED Department Discharge Additional Instructions: You were evaluated today on an emergent basis. At this time we were able to reduce your dislocation of your right shoulder. This resulted in what is called a Bankart Lesion, which is a injury to the glenoid (a part of the shoulder) At this time I do recommend that you follow-up with your orthopedic surgeon regarding this recurrent dislocation. Please use Tylenol and Motrin for pain relief. If you have any worsening symptoms such as worsening pain, redislocation, cold right upper arm or decreased ability to move your fingers or welt stitcher please return to the emergency department. Follow-up with orthopedics within 3 to 5 days. Please use: Tylenol 500-1000mg every 6 hours (DO NOT TAKE MORE THAN 4000mg in 1 day) Ibuprofen 400mg every 6 hours (Take with food as it can cause ulcers, GI upset) Example schedule: 8:00 AM (Tylenol 500-1000mg) 11:00 AM (Ibuprofen 400mg) 2:00 PM (Tylenol 500-1000mg) 5:00 PM (Ibuprofen 400mg) Ice the area 20 minutes 4 times a day [facility] [address], [address] [place] [address] The patient is informed of any results of their evaluation and diagnostic workup and all questions are answered. They are given discharge instructions and return precautions. The patient is stable for discharge. The patient states they understand and agree with the plan and that they will return if their symptoms get worse or if they have any new concerns. The following information is given to patients seen in the emergency department who are being discharged to home. This information is to outline your options for follow-up care. We provide all patients seen in our emergency department with a follow-up referral. The need for follow-up, as well as the timing and circumstances, are variable depending upon the specifics of your emergency department visit. If you don't have a primary care physician on staff, we will provide you with a referral. We always advise you to contact your personal physician following an emergency department visit to inform them of the circumstance of the visit and for follow-up with them and/or the need for any referrals to a consulting specialist. The emergency department will also refer you to a specialist when appropriate. This referral assures that you have the opportunity for follow-up care with a specialist. All of these measure are taken in an effort to provide you with optimal care, which includes your follow-up. Under all circumstances we always encourage you to contact your private physician who remains a resource for coordinating your care. When calling for follow-up care, please make the office aware that this follow-up is from your recent emergency room visit. If for any reason you are refused follow-up, please contact the [facility] Department at and asked to speak to the emergency department charge nurse. Sepsis Event Note (ED) - Evaluation Sepsis Screening Result: No Definite Risk
--- NOTE | 2020-10-12 04:18 | PCM.SN.2 ---
- Free Text/Narrative Note: After consents were completed and a time out performed, monitors placed with O2 via simple mask and patent IV for propofol sedation as requested by Dr. Sanchez for patient's dislocated right shoulder. See patient's chart for RN notes and vital signs. Procedure completed without complication with total of 80 mg prop ofol. Anesthesia times [id number]
--- NOTE | 2020-10-12 04:31 | PCM.POSTAN ---
POST ANESTHESIA ASSESSMENT - MENTAL STATUS Mental Status: Alert, Oriented - VITAL SIGNS Vital Signs: Last Vital Signs Temp Pulse 55 L 10/12/20 04:05 Resp 16 10/12/20 04:05 BP 162/49 H 10/12/20 04:05 Pulse Ox 97 10/12/20 04:05 - RESPIRATORY Respiratory Status: Respiratory Rate WNL, Airway Patent, O2 Saturation Stable - CARDIOVASCULAR CV Status: Pulse Rate WNL, Blood Pressure Stable - GASTROINTESTINAL GI Status: No Symptoms - POST OP HYDRATION Hydration Status: Adequate & Stable
--- NOTE | 2020-10-12 04:31 | PCM48HPAN ---
Post Anesthesia Note - EVALUATION WITHIN 48HRS OF ANESTHETIC Vital Signs in Normal Range: Yes Patient Participated in Evaluation: Yes Respiratory Function Stable: Yes Airway Patent: Yes Cardiovascular Function Stable: Yes Hydration Status Stable: Yes Pain Control Satisfactory: Yes Nausea and Vomiting Control Satisfactory: Yes Mental Status Recovered: Yes Vital Signs: Last Vital Signs Temp Pulse 55 L 10/12/20 04:05 Resp 16 10/12/20 04:05 BP 162/49 H 10/12/20 04:05 Pulse Ox 97 10/12/20 04:05
--- NOTE | 2020-10-12 04:46 | CR ---
HISTORY: Post reduction of glenohumeral joint dislocation. TECHNIQUE: Right shoulder 2 views. COMPARISON: Shoulder radiographs same day at 0033 hours. FINDINGS: Reduction of glenohumeral joint dislocation. Approximately 1.5 cm long displaced osseous Bankart lesion anterior to the glenoid. Degenerative arthrosis of the AC joint. IMPRESSION: Reduction of glenohumeral joint dislocation. Dictated by Otto Pastor MD @ 10/12/2020 4:45:[address] Otto Pastor @ Oct 12 2020 4:45AM
[2020-10-12 05:02] VITALS: BP 145/60; PULSE 56
== END 2020-10-12 04:59 | disposition home or self-care (01) ==
LOC: MW.ED 23:57
DX: M24.411 Recurrent dislocation, right shoulder (principal); M25.111 Fistula, right shoulder; E78.00 Pure hypercholesterolemia, unspecified; I10 Essential (primary) hypertension; E66.9 Obesity, unspecified; Z79.82 Long term (current) use of aspirin; Z79.899 Other long term (current) drug therapy; Z68.41 Body mass index [BMI] 40.0-44.9, adult; X58.XXXA Exposure to other specified factors, initial encounter
CPT/HCPCS: 23650; 73030; 96374; 96375; 99283; J2270; J2405; J2704; J3010; J7120; 01620; 99100